=== PATIENT | male | born 1965 | race Caucasian/White ===

== ENCOUNTER 2020-01-07 09:24 | Inpatient (IN) | payer OTHER ==
--- NOTE | 2020-01-07 09:39 | BHS.RME ---
Substance Use & Tx History - Substance Use History Alcohol Substance amount: 4 pints Vodka, beer 18 x 24 ounce Frequency of use: Daily Substance route: Oral Date of Last Use: 01/06/20 (First use age 16 y. Seizure: a few, last was a few years ago. No blackouts. 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) - Last Treatment Date of last treatment: [facility] sent here Treatment type: Medical Physical/Psych/Mental Status - Behavior General Behavior: Increased activity (restlessness, agitation) Eye Contact: Normal - Cooperativeness Cooperativeness: Cooperative - Thinking Thought Processes: Tight Thought content: Future oriented - Physical Health Problems Is patient presently having any pain?: No Does patient presently have any injuries (include location): No Does patient currently have a fever: No CIWA Nausea/Vomitin-Mild Nausea/No Vomiting Muscle Tremors: 4-Moderate,w/Arms Extend Anxiety: 4-Mod. Anxious/Guarded Agitation: 1-Slight > Activity Paroxysmal Sweats: 2 Orientation: 1-Uncertain about Date Tacttile Disturbances: 0-None Auditory Disturbances: 0-None Visual Disturbances: 0-None Headache: 1-Very Mild CIWA-Ar Total Score: 14
--- NOTE | 2020-01-07 10:07 | HP ---
CIWA Score Nausea/Vomitin-Mild Nausea/No Vomiting Muscle Tremors: 4-Moderate,w/Arms Extend Anxiety: 4-Mod. Anxious/Guarded Agitation: 1-Slight > Activity Paroxysmal Sweats: 2 Orientation: 1-Uncertain about Date Tacttile Disturbances: 0-None Auditory Disturbances: 0-None Visual Disturbances: 0-None Headache: 1-Very Mild CIWA-Ar Total Score: 14 - Admission Criteria OASAS Guidelines: Admission for Medically Managed Detox: Requires at least one of the followin. CIWA greater than 12 2. Seizures within the past 24 hours 3. Delirium tremens within the past 24 hours 4. Hallucinations within the past 24 hours 5. Acute intervention needed for co occurring medical disorder 6. Acute intervention needed for co occurring psychiatric disorder 7. Severe withdrawal that cannot be handled at a lower level of care (continued vomiting, continued diarrhea, abnormal vital signs) requiring intravenous medication and/or fluids 8. Admitting History and Physical - Admission Chief Complaint: Mr. Almodovar is a 54 yo man who presents to [facility] requesting detox stating "alcohol made me crazy". History of Present Illness: Mr. Almodovar is a 54 yo man who presents to [facility] requesting detox stating "alcohol made me crazy". This is his first visit to [facility]. He has never been to detox. He was sent from [facility]. Review of [facility] notes, ~2:30 am, tx for asthma exacerbation, rec: pred 40 x 4 days, go to [facility] for further care of alcohol use disorder. PMH: Asthma PSH: none SOC: homeless Legal: none Psych: none Substance Use History Alcohol Substance amount: 4 pints Vodka, beer 18 x 24 ounce Frequency of use: Daily Substance route: Oral Date of Last Use: 01/06/20 (First use age 16 y. Seizure: a few, last was a few years ago. No blackouts. 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) - Last Treatment Date of last treatment: [facility] sent here Treatment type: Medical - Smoking History Smoking history: Never smoked Aproximately how many cigarettes per day: 0 Admission ROS S - HPI Allergies/Adverse Reactions: Allergies Allergy/AdvReac Type Severity Reaction Status Date / Time No Known Allergies Allergy Verified 01/07/20 09:35 Exam Limitations: No Limitations - Ebola screening Have you traveled outside of the country in the last 21 days: No Have you been sick,other than usual withdrawal symptoms: No Do you have a fever: No - Review of Systems Constitutional: Unintentional Wgt. Loss (unsure of amount) EENT: reports: No Symptoms Reported Respiratory: reports: Cough, Wheezing Cardiac: reports: No Symptoms Reported GI: reports: No Symptoms Reported : reports: No Symptoms Reported Musculoskeletal: reports: Back Pain (he attributes to asthma) Neuro: reports: No Symptoms reported Endocrine: reports: No Symptoms Reported Hematology: reports: No Symptoms Reported Psychiatric: reports: Anxious Patient History - Patient Medical History Hx Asthma: Yes Hx Suicide Attempt: No - Patient Surgical History Past Surgical History: No - Smoking Cessation Smoking history: Never smoked Aproximately how many cigarettes per day: 0 Cigars Per Day: 0 Hx Chewing Tobacco Use: No Initiated information on smoking cessation: No Admission Physical Exam BHS - Vital Signs Vital Signs: UDS: all negative - Physical General Appearance: Yes: Nourished, Appropriately Dressed, Tremorous, Anxious HEENTM: Yes: EOMI, Hearing grossly Normal, Normocephalic, Normal Voice Respiratory: Yes: Lungs Clear, No Respiratory Distress, No Accessory Muscle Use Neck: Yes: Within Normal Limits, Supple Breast: Yes: Breast Exam Deferred Cardiology: Yes: Regular Rhythm, Regular Rate Abdominal: Yes: Normal Bowel Sounds, Non Tender, Flat, Soft Genitourinary: Yes: Other (deferred) Back: Yes: Normal Inspection Musculoskeletal: Yes: Gait Steady Extremities: Yes: Normal Inspection, Calf Tenderness (proximal right medial over varicose vein, no swelling, no erythema) Integumentary: Yes: Normal Color, Dry, Warm - Diagnostic (1) Alcohol dependence with withdrawal, uncomplicated Current Visit: Yes Status: Acute (2) Asthma Current Visit: Yes Status: Acute Qualifiers: Asthma severity: mild Asthma persistence: intermittent Cleared for Admission BHS - Detox or Rehab S Level of Care: Medically Managed Detox Regimen/Protocol: Librium Breathalyzer - Breathalyzer Breathalyzer: 0.086 Inpatient Rehab Admission - Rehab Decision to Admit Inpatient rehab admission?: No
[2020-01-07] MEDS ORDERED: BISMUTH SUBSALICYLATE 524 MG/30 ML UD PO PRN (10:10)
[2020-01-07] MEDS ORDERED: MAGNESIUM CITRATE 300 ML BOTTLE PO PRN (10:10)
[2020-01-07] MEDS ORDERED: chlordiazePOXIDE HCL 25 MG CAPSULE PO PRN (10:10)
[2020-01-07] MEDS ORDERED: MAGNESIUM HYDROX 2400MG/30ML ORAL SUSPENSION 30 ML CUP PO PRN (10:10)
[2020-01-07] MEDS ORDERED: IBUPROFEN 400 MG TABLET (FP) PO PRN (10:10)
[2020-01-07] MEDS ORDERED: METHOCARBAMOL 500 MG TABLET PO PRN (10:10)
[2020-01-07] MEDS ORDERED: ACETAMINOPHEN 325 MG TABLET (FP) PO PRN ×2 (10:10)
[2020-01-07] MEDS ORDERED: ONDANSETRON *ODT* 4 MG TABLET SL PRN (10:10)
[2020-01-07] MEDS ORDERED: MENTHOL/PHENOL 1 EACH UD MM PRN (10:10)
[2020-01-07] MEDS ORDERED: MAG HYDROX/AL HYDROX/SIMETH 30 ML UNIT-DOSE CUP PO PRN (10:10)
[2020-01-07 10:18] VITALS: BMI 26.2
[2020-01-07] MEDS: chlordiazePOXIDE HCL 25 MG CAPSULE PO SCH ×3 (12:20→22:31)
[2020-01-07] MEDS: hydrOXYzine PAMOATE 25 MG CAPSULE (FP) PO SCH ×3 (15:13→22:30)
[2020-01-07] MEDS: MELATONIN 5 MG TABLETS PO SCH (22:30)
[2020-01-07] MEDS: THIAMINE HCL 100 MG TABLET (FP) PO SCH (22:30)
[2020-01-08] MEDS: hydrOXYzine PAMOATE 25 MG CAPSULE (FP) PO SCH ×2 (06:04→12:29)
[2020-01-08] MEDS: chlordiazePOXIDE HCL 25 MG CAPSULE PO SCH ×2 (06:05→12:28)
--- NOTE | 2020-01-08 10:24 | PN ---
S CIWA - CIWA Score Nausea/Vomitin-No Nausea/No Vomiting Muscle Tremors: 3 Anxiety: 3 Agitation: 3 Paroxysmal Sweats: 2 Orientation: 0-Oriented Tacttile Disturbances: 0-None Auditory Disturbances: 0-None Visual Disturbances: 0-None Headache: 0-None Present CIWA-Ar Total Score: 11 S Progress Note (SOAP) Subjective: shakes sweats interrupted sleep Objective: 01/08/20 10:23 Vital Signs Temperature 98.4 F 01/08/20 08:47 Pulse Rate 90 01/08/20 08:47 Respiratory Rate 18 01/08/20 08:47 Blood Pressure 120/77 01/08/20 08:47 O2 Sat by Pulse Oximetry (%) 98 01/08/20 08:47 labs pending aaox3 lying in bed no acute distress Assessment: 01/08/20 10:24 withdrawals Plan: continue detox
--- NOTE | 2020-01-08 10:52 | PN ---
BHS Progress Note Note: pt will prefer to take a different detox medication to assist with his withdrawals. pt in agreement with valium taper.
[2020-01-08] MEDS ORDERED: diazePAM 5 MG TABLET PO PRN (11:01)
[2020-01-08] MEDS ORDERED: hydrOXYzine PAMOATE 25 MG CAPSULE (FP) PO PRN (11:01)
--- NOTE | 2020-01-08 11:55 | EKG ---
Test Reason : Blood Pressure : / mmHG Vent. Rate : 091 BPM Atrial Rate : 091 BPM P-R Int : 202 ms QRS Dur : 100 ms QT Int : 416 ms P-R-T Axes : 063 034 063 degrees QTc Int : 511 ms NORMAL SINUS RHYTHM PROLONGED QT ABNORMAL ECG Confirmed by MD JOSÉ MIGUEL, HARLEY ([id number]) on 01/08/2020 11:54:38 AM Referred By: Confirmed By:HARLEY VALDEZ MD
[2020-01-08 12:24] LABS: HEMATOCRIT 39.6 % (35.4-49); HEMOGLOBIN 13.7 GM/dL (11.7-16.9); MCH 34.5 pg (25.7-33.7); MCHC 34.6 g/dl (32.0-35.9); MEAN CELL VOLUME 99.7 fl (80-96); MEAN PLT VOLUME 8.8 fl (7.5-11.1); PLATELET COUNT 130 K/MM3 (134-434); RBC 3.97 M/mm3 (4.00-5.60); WHITE BLOOD COUNT 2.6 K/mm3 (4.0-10.0)
[2020-01-08] MEDS: PRENATAL VITAMINS W/ FOLIC ACID TABLET (FP) PO SCH (12:32)
[2020-01-08 12:41] LABS: ALBUMIN 2.8 g/dl (3.4-5.0); BILIRUBIN,TOTAL 1.6 mg/dL (0.2-1); BLOOD UREA NITROGEN 11.2 mg/dL (7-18); CREATININE 0.6 mg/dL (0.55-1.3); POTASSIUM 3.3 mmol/L (3.5-5.1); TOT PROT 5.6 g/dl (6.4-8.2)
[2020-01-08] MEDS ORDERED: POTASSIUM CHLORIDE TABS 20 MEQ TABLET.ER (FP) PO SCH (14:30)
[2020-01-08] MEDS: diazePAM 5 MG TABLET PO SCH ×2 (17:28→22:03)
[2020-01-08] MEDS: POTASSIUM CHLORIDE TABS 20 MEQ TABLET.ER (FP) PO SCH (18:02)
[2020-01-08] MEDS: THIAMINE HCL 100 MG TABLET (FP) PO SCH (22:03)
[2020-01-08] MEDS: MELATONIN 5 MG TABLETS PO SCH (22:03)
[2020-01-09] MEDS ORDERED: chlordiazePOXIDE HCL 25 MG CAPSULE PO SCH (05:00)
[2020-01-09] MEDS: diazePAM 5 MG TABLET PO SCH ×3 (05:32→18:34)
[2020-01-09] MEDS: POTASSIUM CHLORIDE TABS 20 MEQ TABLET.ER (FP) PO SCH (10:23)
[2020-01-09] MEDS: PRENATAL VITAMINS W/ FOLIC ACID TABLET (FP) PO SCH (10:23)
--- NOTE | 2020-01-09 11:11 | CONSULT ---
[facility] Psychiatric Consult - Data Date of interview: 01/09/20 Admission source: [facility] Identifying data: Patient is a 54 year old single male, without children, unemployed, homeless, and is supported with disability benefits. This is patient's first admission to detox at [facility]. Patient admitted to for alcohol dependence. Substance Abuse History: Substance Use History. Alcohol. Substance amount: 4 pints Vodka, beer 18 x 24 ounce. Frequency of use: Daily. Substance route: Oral. Date of Last Use: 01/06/20 (First use age 16 y. Seizure: a few, last was a few years ago. No blackouts. 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 Physical/Sexual Abuse/Trauma History: denies. Mental Status Exam - Mental Status Exam Alert and Oriented to: Time, Place, Person Cognitive Function: Good Mood: Hopeful Affect: Appropriate Patient Behavior: Appropriate, Cooperative Speech Pattern: Appropriate Voice Loudness: Normal Thought Process: Goal Oriented Thought Disorder: Not Present Hallucinations: Denies Suicidal Ideation: Denies Homicidal Ideation: Denies Insight/Judgement: Poor Sleep: Fair Appetite: Fair Muscle strength/Tone: Normal Gait/Station: Normal Psychiatric Findings - Problem List ([place] 1, 2,3) (1) Alcohol dependence with withdrawal, uncomplicated Current Visit: Yes Status: Acute - Initial Treatment Plan Initial Treatment Plan: Psychoeducation provided. Detoxification in progress. Observation.
--- NOTE | 2020-01-09 13:39 | PN ---
S CIWA - CIWA Score Nausea/Vomitin-No Nausea/No Vomiting Muscle Tremors: 3 Anxiety: 2 Agitation: 2 Paroxysmal Sweats: 2 Orientation: 0-Oriented Tacttile Disturbances: 0-None Auditory Disturbances: 0-None Visual Disturbances: 0-None Headache: 0-None Present CIWA-Ar Total Score: 9 BHS Progress Note (SOAP) Subjective: sweats shakes Objective: 01/09/20 13:38 Vital Signs Temperature 98.1 F 01/09/20 13:23 Pulse Rate 94 H 01/09/20 13:23 Respiratory Rate 18 01/09/20 13:23 Blood Pressure 132/72 01/09/20 13:23 O2 Sat by Pulse Oximetry (%) 96 01/09/20 05:16 Laboratory Tests 01/07/20 01/08/20 01/08/20 10:30 07:45 07:45 WBC 2.6 L RBC 3.97 L Hgb 13.7 Hct 39.6 MCV 99.7 H MCH 34.5 H MCHC 34.6 RDW 15.0 Plt Count 130 L MPV 8.8 Sodium 138 Potassium 3.3 L Chloride 102 Carbon Dioxide 28 Anion Gap 8 BUN 11.2 Creatinine 0.6 Est GFR (CKD-EPI)AfAm 133.04 Est GFR (CKD-EPI)NonAf 114.79 Random Glucose 75 Calcium 8.0 L Total Bilirubin 1.6 H AST 54 H ALT 50 Alkaline Phosphatase 60 Total Protein 5.6 L Albumin 2.8 L Syphilis Serology COVID-19 (HILARY) Not detected 01/08/20 07:45 WBC RBC Hgb Hct MCV MCH MCHC RDW Plt Count MPV Sodium Potassium Chloride Carbon Dioxide Anion Gap BUN Creatinine Est GFR (CKD-EPI)AfAm Est GFR (CKD-EPI)NonAf Random Glucose Calcium Total Bilirubin AST ALT Alkaline Phosphatase Total Protein Albumin Syphilis Serology Non-reactive COVID-19 (HILARY) labs noted aaox3 ambulating no acute distress pt is currently ordered [facility] Assessment: 01/09/20 13:40 withdrawals Plan: continue detox labs repeated
[2020-01-09] MEDS ORDERED: ALBUTEROL SO4 HFA INHALER IH PRN (19:12)
--- NOTE | 2020-01-09 19:34 | PN ---
[facility] Progress Note Note: Vital Signs 01/09/20 01/09/20 01/09/20 13:07 13:23 16:49 Temperature 98.1 F 98.1 F 98.4 F Pulse Rate 94 H 94 H 75 Respiratory 18 18 18 Rate Blood Pressure 132/72 132/72 128/70 Was called to evaluate patient for shortness of breath. Patient with history of Asthma Pt was seen and evaluated on the unit, alert and oriented x 3, in no acute respiratory distress. Lungs clear to auscultation, saturating 100% on room air. Covid 19 (-) Plan: Administer Albuterol MDI.
[2020-01-09] MEDS: MELATONIN 5 MG TABLETS PO SCH (22:38)
[2020-01-09] MEDS: THIAMINE HCL 100 MG TABLET (FP) PO SCH (22:38)
[2020-01-10] MEDS ORDERED: chlordiazePOXIDE HCL 10 MG CAPSULE PO PRN
[2020-01-10] MEDS ORDERED: chlordiazePOXIDE HCL 10 MG CAPSULE PO SCH (05:00)
[2020-01-10] MEDS: diazePAM 5 MG TABLET PO SCH ×3 (05:52→22:29)
[2020-01-10] MEDS: POTASSIUM CHLORIDE TABS 20 MEQ TABLET.ER (FP) PO SCH (10:29)
[2020-01-10] MEDS: PRENATAL VITAMINS W/ FOLIC ACID TABLET (FP) PO SCH (10:29)
--- NOTE | 2020-01-10 13:55 | PN ---
S CIWA - CIWA Score Nausea/Vomitin-No Nausea/No Vomiting Muscle Tremors: 2 Anxiety: 1-Mildly Anxious Agitation: 1-Slight > Activity Paroxysmal Sweats: No Perspiration Orientation: 0-Oriented Tacttile Disturbances: 0-None Auditory Disturbances: 0-None Visual Disturbances: 0-None Headache: 0-None Present CIWA-Ar Total Score: 4 BHS Progress Note (SOAP) Subjective: anxiety Objective: 01/10/20 13:55 Vital Signs Temperature 97.7 F 01/10/20 08:42 Pulse Rate 75 01/10/20 08:42 Respiratory Rate 18 01/10/20 08:42 Blood Pressure 101/66 01/10/20 08:42 O2 Sat by Pulse Oximetry (%) 97 01/10/20 08:42 Laboratory Tests 01/07/20 01/08/20 01/08/20 10:30 07:45 07:45 WBC 2.6 L RBC 3.97 L Hgb 13.7 Hct 39.6 MCV 99.7 H MCH 34.5 H MCHC 34.6 RDW 15.0 Plt Count 130 L MPV 8.8 Sodium 138 Potassium 3.3 L Chloride 102 Carbon Dioxide 28 Anion Gap 8 BUN 11.2 Creatinine 0.6 Est GFR (CKD-EPI)AfAm 133.04 Est GFR (CKD-EPI)NonAf 114.79 Random Glucose 75 Calcium 8.0 L Total Bilirubin 1.6 H AST 54 H ALT 50 Alkaline Phosphatase 60 Total Protein 5.6 L Albumin 2.8 L Syphilis Serology COVID-19 (HILARY) Not detected 01/08/20 07:45 WBC RBC Hgb Hct MCV MCH MCHC RDW Plt Count MPV Sodium Potassium Chloride Carbon Dioxide Anion Gap BUN Creatinine Est GFR (CKD-EPI)AfAm Est GFR (CKD-EPI)NonAf Random Glucose Calcium Total Bilirubin AST ALT Alkaline Phosphatase Total Protein Albumin Syphilis Serology Non-reactive COVID-19 (HILARY) aaox3 ambulating no acute distress Assessment: 01/10/20 13:55 withdrawals Plan: continue detox
[2020-01-10] MEDS: THIAMINE HCL 100 MG TABLET (FP) PO SCH (22:29)
[2020-01-10] MEDS: MELATONIN 5 MG TABLETS PO SCH (22:29)
[2020-01-11] MEDS ORDERED: chlordiazePOXIDE HCL 10 MG CAPSULE PO SCH (05:00)
[2020-01-11] MEDS ORDERED: diazePAM 5 MG TABLET PO SCH (06:00)
[2020-01-11] MEDS: POTASSIUM CHLORIDE TABS 20 MEQ TABLET.ER (FP) PO SCH (10:19)
[2020-01-11] MEDS: PRENATAL VITAMINS W/ FOLIC ACID TABLET (FP) PO SCH (10:20)
--- NOTE | 2020-01-11 10:36 | PN ---
[facility] CIWA - CIWA Score Nausea/Vomitin-No Nausea/No Vomiting Muscle Tremors: 1-None Visible, but [place] Anxiety: 1-Mildly Anxious Agitation: 1-Slight > Activity Paroxysmal Sweats: No Perspiration Orientation: 0-Oriented Tacttile Disturbances: 0-None Auditory Disturbances: 0-None Visual Disturbances: 0-None Headache: 0-None Present CIWA-Ar Total Score: 3 BHS Progress Note (SOAP) Subjective: anxiety Objective: 01/11/20 10:36 Vital Signs Temperature 97.3 F L 01/11/20 05:34 Pulse Rate 68 01/11/20 05:34 Respiratory Rate 16 01/11/20 05:34 Blood Pressure 131/80 01/11/20 05:34 O2 Sat by Pulse Oximetry (%) 97 01/11/20 05:34 aaox3 ambulating no acute distress Assessment: 01/11/20 10:36 mild withdrawals Plan: continue detox d/c in am
[2020-01-11 15:36] VITALS: BP 136/83; PULSE 103; TEMP 97.7
[2020-01-12] MEDS ORDERED: chlordiazePOXIDE HCL 10 MG CAPSULE PO ONE (05:00)
[2020-01-12] MEDS ORDERED: diazePAM 5 MG TABLET PO ONE (06:00)
== END 2020-01-11 13:20 | disposition home or self-care (01) | DRG 897 ==
LOC: YASAS 09:24 → Y6N 10:24
PROVIDERS: ADMIT Allergy & Immunology; ATTEND Allergy & Immunology
PROC: HZ2ZZZZ Detoxification Services for Substance Abuse Treatment (ICD-10-PCS; principal; 2020-01-07)
DX: F10.230 Alcohol dependence with withdrawal, uncomplicated (principal); J45.20 Mild intermittent asthma, uncomplicated; R63.4 Abnormal weight loss; Z68.26 Body mass index [BMI] 26.0-26.9, adult; Z86.69 Personal history of other diseases of the nervous system and sense organs; Z56.0 Unemployment, unspecified; Z59.0 Homelessness
CPT/HCPCS: 36415; 80053; 85027; 86780; 93005; 93010; 99283-25; U0003

== ENCOUNTER 2020-09-18 15:42 | Inpatient (IN) | payer OTHER ==
[2020-09-18 16:27] VITALS: BMI 26.4
[2020-09-18] MEDS ORDERED: NICOTINE POLACRILEX 2 MG GUM BUC PRN (16:43)
[2020-09-18] MEDS ORDERED: BISMUTH SUBSALICYLATE 524 MG/30 ML PO PRN (16:43)
[2020-09-18] MEDS ORDERED: MAGNESIUM HYDROX 2400MG/30ML ORAL SUSPENSION 30 ML CUP PO PRN (16:43)
[2020-09-18] MEDS ORDERED: METHOCARBAMOL 500 MG TABLET PO PRN (16:43)
[2020-09-18] MEDS ORDERED: ACETAMINOPHEN 325 MG TABLET (FP) PO PRN ×2 (16:43)
[2020-09-18] MEDS ORDERED: MENTHOL/PHENOL 1 EACH UD MM PRN (16:43)
[2020-09-18] MEDS ORDERED: MAG HYDROX/AL HYDROX/SIMETH 30 ML UNIT-DOSE CUP PO PRN (16:43)
[2020-09-18] MEDS ORDERED: IBUPROFEN 400 MG TABLET (FP) PO PRN (16:43)
[2020-09-18] MEDS ORDERED: ONDANSETRON *ODT* 4 MG TABLET SL PRN (16:43)
[2020-09-18] MEDS ORDERED: chlordiazePOXIDE HCL 25 MG CAPSULE PO PRN (16:43)
[2020-09-18] MEDS ORDERED: MAGNESIUM CITRATE 300 ML BOTTLE PO PRN (16:43)
[2020-09-18] MEDS: hydrOXYzine PAMOATE 25 MG CAPSULE (FP) PO SCH ×2 (18:31→22:54)
[2020-09-18] MEDS: chlordiazePOXIDE HCL 25 MG CAPSULE PO SCH ×2 (18:32→22:54)
[2020-09-18] MEDS: PRENATAL VITAMINS W/ FOLIC ACID TABLET (FP) PO SCH (18:33)
[2020-09-18] MEDS: MELATONIN 5 MG TABLETS PO SCH (22:55)
[2020-09-18] MEDS: THIAMINE HCL 100 MG TABLET (FP) PO SCH (22:55)
[2020-09-19] MEDS: hydrOXYzine PAMOATE 25 MG CAPSULE (FP) PO SCH (06:24)
[2020-09-19] MEDS: chlordiazePOXIDE HCL 25 MG CAPSULE PO SCH ×4 (06:24→23:01)
[2020-09-19] MEDS ORDERED: hydrOXYzine PAMOATE 25 MG CAPSULE (FP) PO PRN (07:30)
[2020-09-19 10:12] LABS: HEMATOCRIT 38.5 % (35.4-49); HEMOGLOBIN 13.4 GM/dL (11.7-16.9); MCH 33.9 pg (25.7-33.7); MCHC 34.8 g/dl (32.0-35.9); MEAN CELL VOLUME 97.5 fl (80-96); MEAN PLT VOLUME 8.3 fl (7.5-11.1); PLATELET COUNT 267 K/MM3 (134-434); RBC 3.95 M/mm3 (4.00-5.60); WHITE BLOOD COUNT 3.5 K/mm3 (4.0-10.0)
[2020-09-19 10:18] LABS: BLOOD UREA NITROGEN 10.8 mg/dL (7-18); CALCIUM 8.5 mg/dL (8.5-10.1)
[2020-09-19 10:19] LABS: ALBUMIN 3.6 g/dl (3.4-5.0)
[2020-09-19 10:23] LABS: BILIRUBIN,TOTAL 2.6 mg/dL (0.2-1); CREATININE 0.6 mg/dL (0.55-1.3); TOT PROT 6.6 g/dl (6.4-8.2)
[2020-09-19] MEDS: PRENATAL VITAMINS W/ FOLIC ACID TABLET (FP) PO SCH (10:51)
[2020-09-19] MEDS: THIAMINE HCL 100 MG TABLET (FP) PO SCH (23:01)
[2020-09-19] MEDS: MELATONIN 5 MG TABLETS PO SCH (23:01)
[2020-09-20] MEDS: chlordiazePOXIDE HCL 25 MG CAPSULE PO SCH ×4 (07:49→23:50)
[2020-09-20] MEDS: PRENATAL VITAMINS W/ FOLIC ACID TABLET (FP) PO SCH (10:55)
[2020-09-20] MEDS: THIAMINE HCL 100 MG TABLET (FP) PO SCH (23:49)
[2020-09-20] MEDS: MELATONIN 5 MG TABLETS PO SCH (23:49)
[2020-09-21] MEDS ORDERED: chlordiazePOXIDE HCL 10 MG CAPSULE PO PRN
[2020-09-21] MEDS: chlordiazePOXIDE HCL 10 MG CAPSULE PO SCH ×4 (05:44→22:56)
[2020-09-21] MEDS: PRENATAL VITAMINS W/ FOLIC ACID TABLET (FP) PO SCH (10:57)
[2020-09-21] MEDS ORDERED: POTASSIUM CHLORIDE TABS 20 MEQ TABLET.ER (FP) PO ONE (15:12)
[2020-09-21] MEDS: THIAMINE HCL 100 MG TABLET (FP) PO SCH (22:55)
[2020-09-21] MEDS: MELATONIN 5 MG TABLETS PO SCH (22:56)
[2020-09-22] MEDS: chlordiazePOXIDE HCL 10 MG CAPSULE PO SCH ×2 (07:15→18:07)
[2020-09-22] MEDS: PRENATAL VITAMINS W/ FOLIC ACID TABLET (FP) PO SCH (10:21)
[2020-09-22 10:22] LABS: BILIRUBIN,TOTAL 0.4 mg/dL (0.2-1)
[2020-09-22] MEDS: MELATONIN 5 MG TABLETS PO SCH (22:11)
[2020-09-22] MEDS: THIAMINE HCL 100 MG TABLET (FP) PO SCH (22:11)
[2020-09-23] MEDS ORDERED: chlordiazePOXIDE HCL 10 MG CAPSULE PO ONE (05:00)
[2020-09-23 06:08] LABS: SARS-CoV-2 NAA Not Detected (Not Detected)
[2020-09-23] MEDS: PRENATAL VITAMINS W/ FOLIC ACID TABLET (FP) PO SCH (10:58)
[2020-09-23] MEDS: THIAMINE HCL 100 MG TABLET (FP) PO SCH (22:38)
[2020-09-23] MEDS: MELATONIN 5 MG TABLETS PO SCH (22:38)
[2020-09-24] MEDS: PRENATAL VITAMINS W/ FOLIC ACID TABLET (FP) PO SCH (09:19)
[2020-09-24 12:54] VITALS: BP 131/73; PULSE 102; TEMP 97.8
== END 2020-09-24 15:25 | disposition other institution (70) | DRG 897 ==
LOC: YASAS 15:42 → Y3N 17:55
PROVIDERS: ADMIT Allergy & Immunology; ATTEND Allergy & Immunology
PROC: HZ2ZZZZ Detoxification Services for Substance Abuse Treatment (ICD-10-PCS; principal; 2020-09-18)
DX: F10.230 Alcohol dependence with withdrawal, uncomplicated (principal); G40.509 Epileptic seizures related to external causes, not intractable, without status epilepticus; E87.6 Hypokalemia; E80.6 Other disorders of bilirubin metabolism; J45.909 Unspecified asthma, uncomplicated; I83.93 Asymptomatic varicose veins of bilateral lower extremities; Z56.0 Unemployment, unspecified; Z59.0 Homelessness
CPT/HCPCS: 36415; 80053; 82247; 84132; 85027; 86780; C9803; U0003; U0005